=== PATIENT | female | born 1990 | race Caucasian/White ===

== ENCOUNTER 2019-03-09 07:26 | Inpatient (IN) | payer BC ==
[2019-03-09] VITALS (17 sets, daily range): BP systolic 100–147; BP diastolic 63–110
[~2019-03-09] VITALS: Ht 167.7 cm; Wt 103.1 kg
--- NOTE | 2019-03-09 07:35 | NUR ---
SUSANNE MCMANUS presented to unit via ambulatory from ED, accompanied by Flakito , with c/o ruptured membranes. SUSANNE MCMANUS weighed, gowned, voided, and to bed. EFHM and TOCO applied, VS taken. SUSANNE MCMANUS oriented to bed controls, call light, TV, heat, and A/C controls.
--- NOTE | 2019-03-09 08:26 | NUR ---
Dr Pruett notified per phone of pt admission, + amniotest, exam of 3-4 cms, contractions q 3 minute apart. Admission orders received.
[2019-03-09] MEDS ORDERED: D5 LR IV SOLUTION 1,000 ML IV SCH (08:35)
[2019-03-09 09:51] LABS: BASOPHILS % (AUTO) 0 % (0-10); EOSINOPHILS # (AUTO) 0.1 10^3/uL (0.0-0.3); EOSINOPHILS % (AUTO) 1 % (0-10); HEMATOCRIT 36 % (35-52); HEMOGLOBIN 12.6 G/DL (11.5-16.0); LYMPHOCYTES # (AUTO) 1.6 X 10^3 (1.0-4.0); LYMPHOCYTES % (AUTO) 12 % (12-44); MEAN CORPUSCULAR HEMOGLOBIN 33 PG (25-34); MEAN CORPUSCULAR HGB CONC 35 G/DL (32-36); MEAN CORPUSCULAR VOLUME 94 FL (80-99); MEAN PLATELET VOLUME 13.6 FL (7.4-10.4); MONOCYTES # (AUTO) 0.7 X 10^3 (0.0-1.0); MONOCYTES % (AUTO) 6 % (0-12); NEUTROPHILS # (AUTO) 10.3 X 10^3 (1.8-7.8); NEUTROPHILS % (AUTO) 81 % (42-75); PLATELET COUNT 161 10^3/uL (130-400); RED CELL DISTRIBUTION WIDTH 11.9 % (10.0-14.5); WHITE BLOOD COUNT 12.7 10^3/uL (4.3-11.0)
[2019-03-09] MEDS ORDERED: PREN-102 PO (10:21)
[2019-03-09] MEDS ORDERED: BUTORPHANOL INJ 2 MG/ML (STADOL) VIAL IV PRN (10:30)
[2019-03-09] MEDS ORDERED: ONDANSETRON 4 MG/2 ML (SDV) Z0FRAN IVP PRN (10:30)
--- NOTE | 2019-03-09 11:50 | NUR ---
Dr Avalos notified of possible breech presentation and increased bleeding. Bedside ultrasound by Rn's done. 1214 Dr Avalos here - confirmed breech presentation with ultrasound. 1216 Notified brineyard supervisor of need for . 1246 Marcus Marcano CRNA here in room with pt. 1259 To OR per bed.
[2019-03-09] MEDS ORDERED: METOCLOPRAMIDE INJ 10 MG/2 ML (REGLAN) IV ONE (12:00)
[2019-03-09] MEDS ORDERED: FAMOTIDINE 20MG/2ML IV (PEPCID) IV ONE (12:00)
[2019-03-09] MEDS ORDERED: LACTATED RINGERS 1,000 ML IV PRN ×2 (12:00)
[2019-03-09] MEDS ORDERED: CATHETER FLUSH 10 ML SYR IV PRN (12:00)
[2019-03-09] MEDS ORDERED: CITRIC ACID/SOB CIT (BICITRA) 30 ML UDC PO ONE (12:00)
[2019-03-09] MEDS ORDERED: ceFAZolin 2 GM/50 ML NS 50 ML IV NR (12:30)
[2019-03-09] MEDS ORDERED: TERBUTALINE INJ 1 MG/ML (BRETHINE) AMP SC NR (12:30)
--- NOTE | 2019-03-09 12:31 | History & Physical-OB/GYN ---
History of Present Illness History of Present Illness Reason for visit/HPI Nick Lewis, A0, at 38 5/7 weeks presented to Labor & Delivery with spontaneous rupture of membranes and contractions. Date of Admission Mar 09, 2019 at 08:33 Date Seen by a Provider: Mar 09, 2019 Time Seen by a Provider: 12:10 I consulted on this patient on 03/09/19 12:26 Attending Physician Jeramie Avalos DO Admitting Physician Jeramie Avalos DO Consult Allergies and Home Medications Allergies Coded Allergies: Penicillins (Verified Allergy, Mild, Rash, 03/09/19) Home Medications Vits #93/Iron Fum/FA 1 Each Tablet, 1 EACH PO DAILY, (Reported) Patient Home Medication List Home Medication List Reviewed: Yes Past Wjrdqil-Egenho-Qmxrkb Hx Patient Social History Marrital Status: Number of Children: 0 Number of living children: 0 Employed/Student: employed Alcohol Use: Denies Use Recreational Drug Use: No Smoking Status: Never a Smoker Physical Abuse Screen: No Sexual Abuse: No Recent Foreign Travel: No Contact w/other who traveled: No Surgeries No Respiratory No Cardiovascular No Neurological No Reproductive System : Yes Expected Date of Delivery: Mar 21, 2019 Last Menstrual Period: Jun 14, 2018 Genitourinary No Gastrointestinal No Musculoskeletal No Endocrine History of Endocrine Disorders: No HEENT Loss of Vision: Denies Hearing Impairment: Denies Cancer No Psychosocial History of Psychiatric Problem: No Integumentary History of Skin or Integumenta: No Blood Transfusions History of Blood Disorders: No Adverse Reaction to a Blood Tr: No Family Medical History Family Hx: Hypertension 19 MOTHER Thyroid disease 19 MOTHER Review of Systems Constitutional: see HPI Physical Exam Physical Exam Vital Signs Vital Signs Date Time Temp Pulse Resp B/P (MAP) Pulse Ox O2 Delivery O2 Flow Rate FiO2 03/09/19 07:50 37.1 73 18 130/89 (103) 99 Room Air 03/09/19 07:45 37.0 73 18 99 Room Air Capillary Refill : Less Than 3 Seconds Labs Laboratory Tests 03/09/19 09:48: White Blood Count 12.7H, Red Blood Count 3.86L, Hemoglobin 12.6, Hematocrit 36, Mean Corpuscular Volume 94, Mean Corpuscular Hemoglobin 33, Mean Corpuscular Hemoglobin Concent 35, Red Cell Distribution Width 11.9, Platelet Count 161, Mean Platelet Volume 13.6H, Neutrophils (%) (Auto) 81H, Lymphocytes (%) (Auto) 12, Monocytes (%) (Auto) 6, Eosinophils (%) (Auto) 1, Basophils (%) (Auto) 0, Neutrophils # (Auto) 10.3H, Lymphocytes # (Auto) 1.6, Monocytes # (Auto) 0.7, Eosinophils # (Auto) 0.1, Basophils # (Auto) 0.0 General Appearance: No Apparent Distress, WD/WN Respiratory: Chest Non Tender, Lungs Clear Cardiovascular: Regular Rate, Rhythm, No Murmur Abdominal: normal bowel sounds, non tender, other (Gravid) Gynecology/General: No urethral discharge Labia: WNL Vagina: WNL Cervix: WNL Cervix OS: open (5 cm) Uterus: Enlarged (Gravid) Extremity: Normal Inspection, Non Tender Assessment/Plan Assessment and Plan Assessment: Intrauterine at 38 5/7 weeks 2. SROM 3. Breech Pres entation Plan We will proceed with an immediate . The procedure and its associated risks were discussed with Ms. Lewis and her . All questions were answered. Informed consent was obtained. Admission Diagnosis Intrauterine at 38 5/7 weeks 2. SROM 3. Breech Presentation Admission Status: Inpatient Order (span 2 midnights) Reason for Inpatient Admission: Intrauterine at 38 5/7 weeks 2. SROM 3. Breech Presentation Clinical Quality Measures DVT/VTE Risk/Contraindication: Risk Factor Score Per Nursin RFS Level Per Nursing on Admit: 1=Low/No VTE JERAMIE HUANG DO Mar 09, 2019 12:31
[2019-03-09] MEDS ORDERED: fentaNYL INJECTION 100 MCG/2 ML AMP ONE (12:50)
[2019-03-09] MEDS ORDERED: OXYTOCIN/NORMAL SALINE 1,000 ML IV ONE (12:50)
[2019-03-09] MEDS ORDERED: KETAMINE/NaCl 50 MG/5 ML SYRINGE (ED ONLY) ONE (12:51)
[2019-03-09] MEDS ORDERED: OXYTOCIN/NORMAL SALINE 500 ML IV SCH (13:59)
[2019-03-09] MEDS ORDERED: CATHETER FLUSH 10 ML SYR IV SCH ×2 (14:00)
[2019-03-09] MEDS ORDERED: BUPIVACAINE 0.5% 30 ML (SENSORCAINE) VIAL ONE (14:00)
[2019-03-09] MEDS ORDERED: MEASLES,MUMPS,RUBELLA 1 EA INJ SC SCH (14:00)
[2019-03-09] MEDS ORDERED: TETANUS,DIPTH,PERTUSS P/F (BOOSTRIX) 0.5 ML VIAL IM SCH (14:00)
[2019-03-09] MEDS ORDERED: fentaNYL INJECTION 100 MCG/2 ML AMP IVP PRN (14:00)
--- NOTE | 2019-03-09 14:11 | Cesarean Section Operative ---
Procedure Procedure Note Pre-operative Diagnosis: Eliana weller (30 /Para / , Gestational Age (wks)38 with [SROM and Breech Presentation ] Post-operative Diagnosis: same [Same] Procedure: [Primary] low transverse section Physician: TODD CHILD Assembler Installer Structures: [None] Estimated blood loss: [400] mL Disposition: [Good and stable] Findings: Viable [Male] , Apgars [8. 9], weight [7 lb 2 0z], intact placenta, 3vc, normal appearing uterus, tubes, and ovaries. Indications:Eliana weller (28 /Para / ,Gestational Age (wks)38 presenting with SROM and Breech Presentation. Procedure Details: The patient was seen in pre-op and the procedure was discussed with the patient in full, including the risks, benefits, and alternatives. All questions were answered. The patient was taken to the operating room and a time out was performed, verifying patient and procedure. After spinal anesthesia was placed by our anesthesia colleagues, the patient was placed in the dorsal supine with leftward tilt for uterine displacement.~ Her abdomen was then prepped and draped in the typical sterile fashion. A Pfannenstiel skin incision was made using a scalpel and carried down through the underlying fascia. The fascia was incised in the midline and tented up using Soni clamps. On both the inferior and superior fascia side the rectus muscle was dissected off bluntly and sharply using Flores scissors. The peritoneum was identified and entered bluntly in the midline. This was then stretched laterally using manual strength. After entering the abdominal cavity and confirming lack of intraperitoneal adhesions, a large Shawn retractor was placed and the lower uterine segment was visualized. A bladder flap was created with the use of Metzenbaum scissors.~ A scalpel was utilized to make a low transverse uterine incision. Amniotomy was performed with an Allis clamp with return of clear fluid. The feet were grasped and brought to the level of the incision, the head was delivered with a nuchal cord x 2, which was manually reduced. Mouth and nares were suctioned with bulb suction. After the umbilical cord was clamped and cut, the infant was handed off to the pediatric staff where NRP protocol was followed. A sample of cord blood was then obtained. The placenta was delivered intact via uterine massage. The uterus was exteriorized and cleared of all clots and debris. The uterine incision was closed using 0 Vicryl in a running locked fashion. A second imbricated layer was placed using 0 Vicryl in a running fashion as well. The uterus was flexed forward and the posterior rectouterine space was inspected and cleared of all clots and debris. Again the hysterotomy site was examined and hemostasis was observed. The bilateral tubes and ovaries appeared normal. The uterus was placed back into the abdominal cavity and abdominal gutters were cleared of all clots and debris. A final check of the uterine incision showed it to be hemostatic. The peritoneum was closed using 3-0 Vicryl in a running fashion. The fascia was closed with 0 Vicryl in a running fashion. The subcutaneous space was hemostatic, and irrigated. The subcutaneous space was closed with 3-0 Plain Gut in several single interrupted stitches. The skin was then closed using 4-0 Monocryl in a running subcuticular fashion. The skin edges were reapproximated together and were hemostatic. A pressure dressing was applied. All sponge, lap and needle counts were correct at the end of the procedure per nursing. Vitals - Labs Vital Signs - I&O Vital Signs Date Time Temp Pulse Resp B/P (MAP) Pulse Ox O2 Delivery O2 Flow Rate FiO2 03/09/19 13:00 88 146/80 (102) 03/09/19 12:45 81 141/80 (100) 03/09/19 12:30 78 147/87 (107) 03/09/19 12:15 78 140/92 (108) 03/09/19 12:00 73 18 131/85 (100) Room Air 03/09/19 11:30 37.0 75 18 134/88 (103) Room Air 03/09/19 09:40 69 18 128/87 (101) Room Air 03/09/19 07:50 37.1 73 18 130/89 (103) 99 Room Air 03/09/19 07:45 37.0 73 18 99 Room Air Labs Laboratory Tests 03/09/19 09:48: White Blood Count 12.7H, Red Blood Count 3.86L, Hemoglobin 12.6, Hematocrit 36, Mean Corpuscular Volume 94, Mean Corpuscular Hemoglobin 33, Mean Corpuscular Hemoglobin Concent 35, Red Cell Distribution Width 11.9, Platelet Count 161, Mean Platelet Volume 13.6H, Neutrophils (%) (Auto) 81H, Lymphocytes (%) (Auto) 12, Monocytes (%) (Auto) 6, Eosinophils (%) (Auto) 1, Basophils (%) (Auto) 0, Neutrophils # (Auto) 10.3H, Lymphocytes # (Auto) 1.6, Monocytes # (Auto) 0.7, Eosinophils # (Auto) 0.1, Basophils # (Auto) 0.0 TODD CHILD DO Mar 09, 2019 14:11
--- NOTE | 2019-03-09 15:15 | NUR ---
Transferred from PACU to room 308. 1615 FF @ 1/u with moderate rubra flow. 1720 FF @ 1/u with moderate rubra flow. Pad changed. VSS. Mom and baby doing well.
[2019-03-09] MEDS: KETOROLAC 30 MG/ML VIAL IV SCH ×2 (16:17→21:47)
[2019-03-09] MEDS: METOCLOPRAMIDE 10 MG (REGLAN) TAB PO SCH (17:25)
[2019-03-09] MEDS ORDERED: LACTATED RINGERS 1,000 ML IV SCH (18:15)
[2019-03-09] MEDS: ACETAMINOPHEN 500 MG TAB (TYLENOL) PO SCH (18:45)
--- NOTE | 2019-03-09 18:55 | NUR ---
RT notified of IS ordered.
[2019-03-09] MEDS: DOCUSATE SODIUM 100 MG (COLACE) CAP PO SCH (20:03)
--- NOTE | 2019-03-09 20:30 | NUR ---
pt resting in bed. assessment completed. pt denies any concerns. pt assisted to the bathroom. pericare performed. bleeding light to moderate. pad changed. pt assisted back to bed. pt tolerated ambulating well. denies any needs. call light within reach. will continue to monitor.
--- NOTE | 2019-03-10 01:00 | NUR ---
pt ambulated to the bathroom. pericare completed. pt tolerated well.
[2019-03-10] MEDS: ACETAMINOPHEN 500 MG TAB (TYLENOL) PO SCH ×3 (01:12→13:49)
[2019-03-10] MEDS: METOCLOPRAMIDE 10 MG (REGLAN) TAB PO SCH (01:12)
[2019-03-10 01:15] VITALS: BP 143/83
[2019-03-10] MEDS: KETOROLAC 30 MG/ML VIAL IV SCH (04:14)
--- NOTE | 2019-03-10 04:25 | NUR ---
pt ambulated to the bathroom. pericare completed. mecca atwood'jose elias. pt tolerated well.
[2019-03-10 04:48] VITALS: BP 126/69
--- NOTE | 2019-03-10 04:49 | NUR ---
abdominal drsg removed. pt tolerated well. incision well approximated. no drainage or erythema noted
[2019-03-10] MEDS ORDERED: BISACODYL 10 MG SUPP (DULCOLAX) PR NR (05:00)
[2019-03-10] MEDS ORDERED: MILK OF MAGNESIA 400 MG/5 ML 30 ML UDC PO NR (05:00)
--- NOTE | 2019-03-10 05:08 | NUR ---
Pt reports positive bm and void. diet changed in computer
[2019-03-10 06:08] LABS: BASOPHILS % (AUTO) 0 % (0-10); EOSINOPHILS % (AUTO) 0 % (0-10); HEMATOCRIT 31 % (35-52); HEMOGLOBIN 10.8 G/DL (11.5-16.0); LYMPHOCYTES # (AUTO) 1.3 X 10^3 (1.0-4.0); LYMPHOCYTES % (AUTO) 10 % (12-44); MEAN CORPUSCULAR HEMOGLOBIN 33 PG (25-34); MEAN CORPUSCULAR HGB CONC 34 G/DL (32-36); MEAN CORPUSCULAR VOLUME 95 FL (80-99); MONOCYTES # (AUTO) 0.6 X 10^3 (0.0-1.0); MONOCYTES % (AUTO) 5 % (0-12); NEUTROPHILS # (AUTO) 10.6 X 10^3 (1.8-7.8); NEUTROPHILS % (AUTO) 85 % (42-75); PLATELET COUNT 120 10^3/uL (130-400); RED CELL DISTRIBUTION WIDTH 11.9 % (10.0-14.5); WHITE BLOOD COUNT 12.5 10^3/uL (4.3-11.0)
[2019-03-10] MEDS ORDERED: OXC5T PO (07:27)
[2019-03-10] MEDS ORDERED: DOCU-244 PO (07:27)
[2019-03-10] MEDS ORDERED: IBUP-1780 PO (07:27)
[2019-03-10] MEDS ORDERED: ACET-93 PO (07:27)
--- NOTE | 2019-03-10 07:30 | NUR ---
DR. CHILD HERE TO SEE PT. PLAN FOR DISCHARGE.
--- NOTE | 2019-03-10 07:34 | Discharge Summary ---
Diagnosis/Chief Complaint Date of Admission Mar 09, 2019 at 08:33 Date of Discharge March 10, 2018 Discharge Date: Mar 10, 2019 Discharge Time: 14:30 Admission Diagnosis Admission Diagnosis Intrauterine at 38 5/7 weeks 2. SROM 3. Breech Presentation Discharge Diagnosis Intrauterine at 38 5/7 weeks--delivered 2. SROM 3. Breech Pr esentation Reason Hospital Visit Nick Lewis, A0, at 38 5/7 weeks presented to Labor & Delivery with spontaneous rupture of membranes and contractions. Discharge Summary Hospital Course Was the Problem List Reviewed?: Yes Hospital Course Ms. Lewis, 38 5/7 weeks, A0, presented to the hospital with spontaneous rupture of membranes. Also, trung every 2-3 minutes. It was discovered that the fetus was in a breech presentation. She was taken back for an immediate Primary Low Transverse . On the day of surgery, IV pain management and other comfort measures were instituted. A viable, healthy male was delivered. Postoperative Day #1, found Ms. Lewis voiding freely, moving her bowels, tolerating a Regular Diet, ambulating and controlling her pain with oral pain medications. Her vital signs remained stable throughout her hospitalization. I will discharge her to home with prescriptions, instructions and a follow up appointment. Labs Laboratory Tests 03/09/19 09:48: White Blood Count 12.7H, Red Blood Count 3.86L, Mean Platelet Volume 13.6H, Neutrophils (%) (Auto) 81H, Neutrophils # (Auto) 10.3H 03/10/19 05:10: White Blood Count 12.5H, Red Blood Count 3.32L, Mean Platelet Volume 13.0H, Neutrophils (%) (Auto) 85H, Neutrophils # (Auto) 10.6H, Hemoglobin 10.8L, Hematocrit 31L, Platelet Count 120L, Lymphocytes (%) (Auto) 10L Procedures None. Discharge Physical Examination Allergies: Coded Allergies: Penicillins (Verified Allergy, Mild, Rash, 03/09/19) Vitals & I&Os Vital Signs Date Time Temp Pulse Resp B/P (MAP) Pulse Ox O2 Delivery O2 Flow Rate FiO2 03/10/19 04:48 36.5 74 18 126/69 (88) 98 Room Air General Appearance: Alert, Oriented X3, Cooperative HEENT: Atraumatic Respiratory: Clear to Auscultation, Normal Air Movement Cardiovascular: Regular Rate, No Murmurs Abdominal: Normal Bowel Sounds, Other (Mildly tender. Incision is clean, dry and well approximated) Extremities: No Clubbing, No Cyanosis Skin: No Rashes Neuro: Normal Gait, Normal Speech Psych/Mental Status: Mental Status NL Discharge Home Medications Reviewed and agree with Discharge Medication list on patient's Discharge Instruction sheet Instructions to Patient/Family Please see electronic discharge instructions given to patient. Clinical Quality Measures DVT/VTE Risk/Contraindication: Risk Factor Score Per Nursin RFS Level Per Nursing on Admit: 1=Low/No VTE PPX TODD CHILD DO Mar 10, 2019 07:34
[2019-03-10] MEDS: DOCUSATE SODIUM 100 MG (COLACE) CAP PO SCH (07:59)
[2019-03-10 08:00] VITALS: BP 125/75
--- NOTE | 2019-03-10 08:00 | NUR ---
A.M. ASSESSMENT COMPLETED. VSS. CARING FOR IN ROOM.
--- NOTE | 2019-03-10 08:48 | NUR ---
TO ROOM TO ASSIST WITH FEEDING .
[2019-03-10] MEDS ORDERED: IBUPROFEN 800 MG (MOTRIN) TAB PO ONE (09:15)
--- NOTE | 2019-03-10 09:30 | NUR ---
DR. KIM HERE TO TALK WITH MOM AND SEE .
[2019-03-10] MEDS: IBUPROFEN 800 MG (MOTRIN) TAB PO SCH ×2 (09:44→17:56)
--- NOTE | 2019-03-10 10:28 | Anesthesia-Regional Post-Op ---
Regional Patient Condition Mental Status: Alert, Oriented x3 Circulation: Same as Pre-Op Headache: Absent Sensation: Full Recovery Motor Block: Absent Post Op Complications Complications None Follow Up Care/Instructions Patient Instructions None needed. Anesthesia/Patient Condition Patient is doing well, no complaints, stable vital signs, no apparent adverse anesthesia problems. No complications reported per nursing. CLINT CALLAHAN CRNA Mar 10, 2019 10:28
--- NOTE | 2019-03-10 10:40 | NUR ---
AMBULATING IN THE HALLS. MOVES WELL. FOB IN ROOM WITH BABY.
[2019-03-10 12:00] VITALS: BP 116/73
--- NOTE | 2019-03-10 12:30 | NUR ---
ASSISTING WITH FEEDING ATTEMPTS.
--- NOTE | 2019-03-10 13:09 | NUR ---
TDAP GIVEN IM IN LEFT DELTOID. SITE CLEAR.
--- NOTE | 2019-03-10 13:15 | NUR ---
PUMPING BREASTS. STORK MEAL SERVED. PARENTS HERE TO SEE PT.
--- NOTE | 2019-03-10 15:30 | NUR ---
CONTINUES TO ASSIST PT WITH QUESTIONS AND NEEDS. DENIES NEED FOR PAIN MEDS.
[2019-03-10 16:30] VITALS: BP 128/71
--- NOTE | 2019-03-10 18:10 | NUR ---
DISCHARGE INSTRUCTIONS REVIEWED WITH COPY TO PT. RXS FILLED EARLIER BY FAMILY MEMBER. STATES UNDERSTANDING OF ALL INSTRUCTIONS AND NEED TO F/U SCHEDULED AND NEEDED.
[2019-03-10 19:00] VITALS: BP 128/71
--- NOTE | 2019-03-10 19:00 | NUR ---
DISMISSED FROM WS IN STABLE CONDITION. PT WILL REMAIN IN ROOM A BOARDER MOM.
== END 2019-03-10 19:00 | disposition home or self-care (01) | DRG 788 ==
LOC: WSo 07:26 → LDRP 07:28 → WSo 08:33 → LDRP 16:03
PROVIDERS: ADMIT Obstetrics & Gynecology; ATTEND Obstetrics & Gynecology
PROC: 10D00Z1 Extraction of Products of Conception, Low, Open Approach (ICD-10-PCS; principal; 2019-03-09 13:01)
DX: O64.1XX0 Obstructed labor due to breech presentation, not applicable or unspecified (principal); O69.81X0 Labor and delivery complicated by cord around neck, without compression, not applicable or unspecified; Z3A.38 38 weeks gestation of pregnancy; Z37.0 Single live birth; Z88.0 Allergy status to penicillin; Z23 Encounter for immunization
CPT/HCPCS: 36415; 85025; 86850; 86900; 86901; 90715; 99212